=== PATIENT | female | born 1975 | race Caucasian/White ===

== ENCOUNTER 2016-08-02 13:15 | Outpatient (CLI) ==
[2016-01-14 13:47] VITALS: BMI 39.4
[2016-08-02 13:57] LABS: ALBUMIN 3.7 g/dL (3.4-5.0); ANION GAP 13.2; BILIRUBIN,TOTAL 0.2 mg/dL (0.00-1.20); CALCIUM 9.4 mg/dL (8.2-10.2); CREATININE 0.64 mg/dL (0.60-1.30); POTASSIUM 4.2 mmol/L (3.5-5.10); TOTAL PROTEIN 7.4 g/dL (6.4-8.2)
[2016-08-02 13:58] LABS: BUN/CREATININE RATIO 12.5; CHOL/HDL RATIO 2.8 (4.5-5.5)
== END 2016-08-02 13:16 | disposition home or self-care (01) ==
LOC: LAB 13:15
PROVIDERS: ATTEND Nurse Practitioner
DX: E13.9 Other specified diabetes mellitus without complications (principal)
CPT/HCPCS: 36415; 80053; 80061; 82043; 83036